=== PATIENT | female | born 1995 | race Caucasian/White ===

== ENCOUNTER 2020-03-06 06:22 | Inpatient (IN) ==
[2020-03-06] MEDS ORDERED: *HR* FentaNYL (PF) 100 MCG/2 ML VIAL IVP PRN (08:11)
[2020-03-06] MEDS ORDERED: Naloxone 0.4 MG/ML INJ IVP PRN (08:11)
[2020-03-06] MEDS ORDERED: Azithromycin 500 MG in 0.9 % Sodium Chloride 250 ML IVPB ONE (08:11)
[2020-03-06] MEDS ORDERED: Ondansetron 4 MG/2 ML VIAL IVP PRN (08:11)
[2020-03-06] MEDS ORDERED: Metoclopramide 10 MG/2 ML VIAL IVP PRN (08:11)
[2020-03-06] MEDS ORDERED: miSOPROStoL 25 MCG TABLET PO ONE (08:11)
[2020-03-06] MEDS ORDERED: Famotidine 20 MG/2 ML VIAL IVP PRN (08:11)
[2020-03-06] MEDS ORDERED: Oxytocin 20 units/ LR 1000 mL 20 UNIT/1,000 ML BAG IVC SCH ×2 (08:15→23:27)
[2020-03-06] MEDS: Ringers Solution, Lactated 1,000 ML IVC SCH ×2 (08:15→14:12)
[2020-03-06 10:55] LABS: Basophils % 0.3 %; Eosinophils # 0.2 K/mcL (0.0-0.6); Eosinophils % 1.5 %; Hematocrit 39.1 % (35.3-44.9); Hemoglobin 12.7 g/dL (11.5-15.4); Immature Granulocytes % 0.4 % (0-4); Lymphocytes # 2.7 K/mcL (0.6-4.6); Lymphocytes % 25.1 %; Mean Corpuscular HGB Conc 32.5 g/dL (31.6-35.5); Mean Corpuscular Hemoglobin 29.3 pg (28.0-33.3); Mean Corpuscular Volume 90.1 fL (83.0-100.0); Mean Platelet Volume 11.2 fL (9.4-12.4); Monocytes # 0.7 K/mcL (0.0-1.3); Monocytes % 6.5 %; Platelet Count 217 K/mcL (140-400); Red Blood Count 4.34 M/mcL (3.82-4.97); Red Cell Distribution Width 13.8 % (11.5-14.5); Segmented Neutrophils % 66.2 %; White Blood Count 10.5 K/mcL (4.3-11.1)
[2020-03-06 10:59] LABS: Amphetamine Screen,Urine Negative ng/mL (Cutoff=1000); Barbiturate Screen,Urine Negative ng/mL (Cutoff=200); Benzodiazepines Screen,Urine Negative ng/mL (Cutoff=200); Cannabinoid Screen,Urine Negative ng/mL (Cutoff = 50); Cocaine Screen,Urine Negative ng/mL (Cutoff= 300); Opiate Screen,Urine Negative ng/mL (Cutoff=300); Phencyclidine Screen,Urine Negative ng/mL (Cutoff=25)
[2020-03-06] MEDS ORDERED: *HR* FentaNYL (PF) 100 MCG/2 ML VIAL ONE (13:44)
[2020-03-06] MEDS ORDERED: Ropivacaine/PF 0.2% 20 ML VIAL ONE (13:44)
[2020-03-06] MEDS ORDERED: Epidural Premix (fent/bupiv) 110 ML EP ONE (13:45)
[2020-03-06] MEDS ORDERED: miSOPROStoL 100 MCG TABLET PO STA (21:48)
[2020-03-06] MEDS ORDERED: Rho Immune Globulin 1,500 UNIT SYRINGE IM PRN (23:27)
[2020-03-06] MEDS ORDERED: Lanolin 7 G OINT...G. TP PRN (23:27)
[2020-03-06] MEDS ORDERED: Benzocaine/Menthol 56 GM AEROSOL SPRAY TP PRN (23:27)
[2020-03-06] MEDS ORDERED: Measles/Mumps/Rubella Vacc 0.5 ML VIAL SQ PRN (23:27)
[2020-03-06] MEDS: Ibuprofen 600 MG TABLET PO PRN (23:47)
[2020-03-07] MEDS: Acetaminophen 325 MG TABLET PO PRN ×2 (02:59→20:59)
[2020-03-07] MEDS: Ibuprofen 600 MG TABLET PO PRN ×2 (06:43→17:50)
[2020-03-07] MEDS ORDERED: Prenatal Vit/FA 1 EACH TABLET PO SCH (09:00)
[2020-03-07 21:22] VITALS: BP 110/71
== END 2020-03-07 22:55 | disposition home or self-care (01) | DRG 807 ==
LOC: 1NENULAB 06:22 → 1NENUOBS 23:45
PROVIDERS: ADMIT Obstetrics & Gynecology; ATTEND Obstetrics & Gynecology